=== PATIENT | female | born 2000 | race Caucasian/White ===

== ENCOUNTER 2024-10-04 05:18 | Emergency (ER) | payer OTHER, SELFPAY ==
[2024-10-04 05:22] VITALS: BP 127/79; PULSE 91; RESP 19; TEMP 36.9; O2SAT 99; BMI 17.7
--- NOTE | 2024-10-04 05:27 | ED_ITS ---
HPI - Ear Problem General Chief complaint: Ear Problems Stated complaint: ear pain Time Seen by Provider: 10/04/24 05:26 History of Present Illness ED Provider: Kervin Momin MD HPI Narrative: 24-year-old female with left-sided ear pain. Right-sided symptoms have resolved but she had these a few days ago. Some drainage has been coming out left side. Related Data Previous Rx's ?Medication ?Instructions ?Recorded amoxicillin 875 mg-potassium 1 tab PO BID 7 days #14 t abs 10/04/24 clavulanate 125 mg tablet ciprofloxacin 0.2 %-hydrocortisone 4 drp otic (ears) Q 12H 7 days #10 10/04/24 1 % ear drops,suspension mL Allergies Allergy/AdvReac Type Severity Reaction Status Date / Time No Known Allergies Allergy Verified 10/04/24 05:23 [facility] Social History Social History Advance Directives: No Advance Directives Information Provided: Yes Do you have a plan to hurt others: No Plan Physical Exam Exam: Exam: GENERAL: Well appearing. No apparent distress. Alert. HEAD/NECK: No visual trauma. EYES: Normal to inspection. No conjunctival erythema. No discharge. ENMT: Right ear grossly normal with no tenderness of the external ear structures or mastoid. Left ear tender with even minimal manipulation of the external ear structures though no visible induration of the auricle externally. No mastoid tenderness no gross discharge from the ear. The canal however his erythematous and indurated with exquisite tenderness. Somewhat limited view given the tenderness of the canal of the left tympanic membrane though there is suggestion that it is bulging and erythematous no discharge in the canal noted RESPIRATORY: Respiratory effort normal. CARDIOVASCULAR: Additional details (Grossly well perfused). SKIN: No jaundice. NEUROLOGICAL: Alert. Moving all extremities x4. Additional details (No gross motor deficits. Normal tone. ). PSYCHIATRIC: Alert. Appearance appropriate for situation. Vital Signs: Vital Signs: Last Vital Signs Temp 98.5 F 10/04/24 06:01 Pulse 91 10/04/24 06:01 Resp 19 10/04/24 06:01 BP 127/79 10/04/24 06:01 Pulse Ox 99 10/04/24 06:01 O2 Del Method Room Air 10/04/24 06:01 BMI result Body Mass Index 17.7 Medications Administered Discontinued Medications Generic Name Dose Route Start Last Admin Trade Name Freq PRN Reason Stop Dose Admin Acetaminophen 975 mg 10/04/24 05:42 10/04/24 05:56 Acetaminophen 325 Mg Tablet PO 10/04/24 05:43 975 mg ONCE ONE Administration Amoxicillin/Clavulanate Potassium 875 mg 10/04/24 05:42 10/04/24 05:56 Amoxicillin/Potassium Clav 875 Mg Tablet PO 10/04/24 05:43 875 mg ONCE ONE Administration Neomycin/Polymyxin/Hydrocortisone 3 drop 10/04/24 05:46 10/04/24 06:03 Neomycin/Polymyxin/Hc Otic Reena 10 Ml Drpbtl EAR-LEFT 10/04/24 05:47 Not Given ONCE ONE Medical Decision Making Medical Decision Making MDM Narrative: Medical Decision Makin-year-old female healthy no immunocompromise with left ear pain. Examination suggestive of swimmer's ear/otitis externa moderate severity and possibly otitis media. I will treat empirically for both including ear wick with topical Cipro/dex as well as Augmentin. Patient declined any more significant pain control she will stick with ibuprofen Tylenol as needed. Preliminary Favored Differential Diagnosis: Otitis externa, otitis media, no suggestion of mastoiditis or neurologic extension/meningeal extension among additional considered etiologies Testing Interpreted Independently: Not Applicable Radiology or Lab testing Results Reviewed: Not Applicable Consults: Not Applicable Independent Historians/External Chart Reviews: Not Applicable Social Determinants of Health Impacting MDM/Planning: Not Applicable Discharge Plan Discharge Clinical Impression: Otitis externa, Otitis media Patient Disposition: Home, Self-Care Instructions: Swimmer's Ear (ED), How to Use Ear Drops (ED), Ear Infection (ED) Additional Instructions: DISCHARGE DIAGNOSES: Swimmer's ear otitis externa Limited view of the tympanic membrane but a suggestion of otitis media as well HISTORY OF PRESENTATION: ?Pain in the left ear EMERGENCY DEPARTMENT COURSE,TESTS, TREATMENTS: While in the ED today you were diagnosed clinically with external and middle ear infection Amoxicillin/clavulanic acid 1 dose was given in the ED in your prescribed medications DISCHARGE MEDICATIONS: ?Ciprodex drops with ear wick, Augmentin oral medication FOLLOW-UP: ?Call your primary or general physician soon as possible to discuss your symptoms, your ED visit and to discuss follow up plans ENT as needed if no resolution INSTRUCTIONS ?& RETURN PRECAUTIONS: If any symptoms change first call your primary physician, if it is after-hours your primary doctors office should have a provider community integration specialist you can speak with. If the symptoms are severe or very concerning to you then call 911 or return to the ED. Kervin Momin MD Emergency Physician [facility] Prescriptions: New ciprofloxacin-hydrocortisone 0.2-1 % drops,suspension 4 drp otic (ears) Q12H 7 Days Qty: 10 0RF amoxicillin-pot clavulanate 875-125 mg tablet 1 tab PO BID 7 Days Qty: 14 0RF Stand Alone Forms: Work/School Release Interventions: ED Discharge Assessment Last Done: 10/04/24 06:01 Discharge Date/Time: 10/04/24 06:03 Print Language: Montenegrin
[2024-10-04 06:01] VITALS: BP 127/79; PULSE 91; RESP 19; TEMP 36.9; O2SAT 99
--- OUTSIDE RECORDS SUMMARY | 2024-10-04 06:04 | XMS_ITS | Clinical Summary ---
Author Organization [facility] Address [address] [place] [address] Care Team Providers Care Mechanical Integrity Specialist Name Role Phone Cintia Santos [facility] Primary Care Provider [phone] Source Comments PLEASE NOTE, if this patient is a minor, it may be UNLAWFUL to discuss sensitive information that is contained in these records (such as FAMILY PLANNING, MENTAL HEALTH or SUBSTANCE ABUSE) with the minor patient's parent or other person without the patient's specific authorization.[facility] Allergies No known active allergies Medications neomycin-polymyx in-HC (CORTISPORIN) 3.5-10,000-1 mg/mL-unit/mL-% otic suspensionIndica tions:Bilateral otitis media with effusion Place 4 Drops into both ears 3 (three) times daily 10 mL 10/19/2021 Active Active Problems Problem Noted Date Diagnosed Date Chronic toe pain, left foot 10/10/2021 Anxiety 10/10/2021 Dysthymia 10/10/2021 Sprain of right ankle 10/10/2021 Bilateral otitis media with effusion 10/10/2021 Marijuana use, continuous 10/10/2021 Migraine 10/13/2018 Immunizations Immunization Administration Dates Next Due DTAP (Infanrix) 05/21/2005, 1,2000, 1 Flu, Preservative Free 03/08/2016 HPV 9 (Gardasil) 03/08/2016,03/19/2014, 3 Hep A, Ped/adol, 2 Dose 01/15/2017,03/08/2016 Hep B, Unspecified 01/28/2001,2000, 001 Hib (PRP-T) 09/19/2001, 1,2000, 1 IPV (IPOL) 05/21/2005, 2,2000, 1 MENINGOCOCCAL B (Bexsero), [facility] 05/23/2018 MENINGOCOCCAL MCV4, HISTORICAL 01/16/2012 MMR (MMR II/Priorix) 05/21/2005,09/19/2001 PNEUMOCOCCAL CONJUGATE PCV 7 12/04/2002, 2000,2000, 1 TDAP 08/03/2010 Varicella (Varivax), Live Vaccine 11/24/2010, Family History Medical History Relation Name Comments No Known Problems Brother No Known Problems Father Breast cancer Maternal Grandmother Diabetes Maternal Grandmother Chronic bronchitis Mother Relation Name Status Comments Brother Alive Father Alive Maternal Grandmother Mother Alive Social History Tobacco Use Types Packs/Day Years Used Date Smoking Tobacco: Never Smokeless Tobacco: Never Tobacco Cessation:Counseling Given: Not Answered Alcohol Use Standard Drinks/Week Comments Not Currently 0 (1 standard drink = 0.6 oz pur e alcohol) Social Connections Answer Date Recorded Connectedness 0 11/11/2023 Financial Resource Strain Answer Date R ecorded Financial Resource Strain 0 2021 Stress Answer Date Recorded Stress 0 10/09/2021 Physical Activity Answer Date Recorded Physical Activity 0 10/09/2021 Food Insecurity Answer Date Recorded Food 0 11/28/2023 Transportation Needs Answer Date Record ed Transportation 0 10/09/2021 Housing Stability Answer Date Recorded Housing 0 10/09/2021 Safety and Environment Answer Date Raymond rded Safety 0 10/09/2021 Utilities Answer Date Recorded Utilities 0 10/09/2021 Employment Answer Date Recorded Employment 0 10/09/2021 Comments No Sex and Gender Information Value Date Recorded Sex Assigned at Female 10/09/2021 7:08 AM PDT Legal Sex Female 12:30 PM PDT Gender Identity Female 10/09/2021 7:08 AM PDT Sexual Orientation Straight 10/09/2021 7: 08 AM PDT Last Filed Vital Signs Vital Sign Reading Time Taken Comments Blood Pressure 124/66 10/09/2021 10:08 AM EDT Pulse 94 10/09/2021 10:08 AM EDT Temperature 37.1 C (98.7 F) 10/09/2021 10:08 AM EDT Respiratory Rate 16 10/09/2021 10:0 8 AM EDT Oxygen Saturation 100% 10/09/2021 10: 08 AM EDT Inhaled Oxygen Concentration - - Weight 70.3 kg (154 lb 14.4 oz) 022 10:08 AM EDT Height 176 cm (5' 9.29 ) 10/09/2021 10: 08 AM EDT Body Mass Index 22.68 10/09/2021 10:08 AM EDT Plan of Treatment Health Maintenance Due Date Last Done Comments Anxiety Screening 2000 HPV Screening 2000 Hepatitis C Screening 2000 Pap + HPV 2000 Tobacco Screening 2000 Chlamydia Screening 2013 Gonorrhea Screening 2013 HIV Screening 2015 Imm-Meningococcal B (2 of 2 - Bexsero SCDM 2-dose series) 11/23/2018 05/23/2018 Imm-DTaP/Tdap/Td (6 - Td or Tdap) 08/03/2020 08/03/2010, 05/21/2005, 2000, Additional history exists Cervical Cancer Screening 2021 Pap Smear 2021 Depression Monitoring 01/09/2022 10/09/2021 Relationship Safety Screening/Counseling 10/09/2022 10/09/2021 [id number] ( season) 2023 021, 06/30/2020 Alcohol and Drug Screen 03/04/2024 10/09/2021 Hypertension Screening (#1) 10/08/2024 Imm-Influenza (#1) 2024 03/08/2016 Imm-Hepatitis B Completed 01/28/2001, 05/03, 2000 Imm-Varicella Completed 11/24/2010, 05/15/2001 Imm-HPV Completed 03/08/2016, 03/04, 01/15/2013 Cervical Ablation/Cold-Knife Conization Discontinued Cervical Cryotherapy Discontinued Colposcopy Discontinued Endometrial Biopsy Discontinued Excision/Leep Discontinued HPV Genotyping Discontinued Vaginal Pap Discontinued Vulvoscopy Discontinued Insurance [employer] Care Teams Mechanical Integrity Specialist Relationship Specialty Start Date End Date Cintia Santos FNP [address] [place] [id number] PCP - General Internal Medicine 06/23/21
== END 2024-10-04 06:03 | disposition home or self-care (01) ==
LOC: HO.ED 06:02
PROVIDERS: Emergency Provider Emergency Medicine
DX: H60.92 Unspecified otitis externa, left ear (principal); H66.92 Otitis media, unspecified, left ear; H92.02 Otalgia, left ear
CPT/HCPCS: 99283